=== PATIENT | male | born 1980 | race Hispanic/Latino ===

== ENCOUNTER 2024-07-02 03:38 | Inpatient (IN) | payer SELFPAY ==
[2024-07-02 10:42] VITALS: BMI 36.1
[2024-07-02] MEDS ORDERED: Electrolyte Replacement Protocol 1 EACH FS SCH (10:45)
[2024-07-02] MEDS ORDERED: Lorazepam 1 MG TAB PO PRN (10:45)
[2024-07-02] MEDS ORDERED: Ondansetron ODT 4 MG TAB PO PRN (10:45)
[2024-07-02] MEDS ORDERED: Acetaminophen 325 MG TAB PO PRN (10:45)
[2024-07-02] MEDS ORDERED: Glucagon 1 MG/ML KIT IM PRN (10:50)
[2024-07-02] MEDS ORDERED: Dextrose 50% Abboject 50 ML SYRINGE SLOW IVP PRN (10:50)
[2024-07-02] MEDS ORDERED: Dextrose 5% in Water 1,000 ML IV PRN (10:50)
[2024-07-02] MEDS: Lorazepam 1 MG TAB PO SCH (11:24)
[2024-07-02] MEDS: Thiamine HCl 200 MG/2 ML VIAL SLOW IVP SCH (11:24)
[2024-07-02] MEDS: Insulin Regular, Human 100 UNIT/ML 10 ML VIAL SC PRN (11:56)
[2024-07-02] MEDS: Atorvastatin Calcium 20 MG TAB PO SCH (22:08)
[2024-07-02] MEDS: Famotidine 20 MG TAB PO SCH (22:08)
[2024-07-03 04:35] LABS: #Basophils 0.08 10x3/uL (0.0-0.2); %Basophils 0.6 % (0.0-1.0); %Eosinophils 1.7 % (0.0-10.0); %Lymphocytes 13.9 % (21.0-51.0); %Monocytes 6.5 % (0.0-10.0); %Neutrophils 76.9 % (42.0-75.0); Hematocrit 48.6 % (42.0-52.0); Mean Corpuscular HGB CONC 32.9 g/dL (32.0-36.0); Mean Corpuscular Hemoglobin 31.4 pg (27.0-31.0); Mean Corpuscular Volume 95.5 fL (78.0-98.0); Mean Platelet Volume 10.2 fL (7.4-10.4); Platelet Count 184 10x3/uL (130-400); RBC Distribution Width 12.2 % (11.5-14.5); Red Blood Cell (RBC) Count 5.09 mill/uL (4.70-6.10)
[2024-07-03 05:53] LABS: ALT (SGPT) 75 U/L (8-55); AST (SGOT) 100 U/L (5-34); Albumin 3.8 g/dL (3.5-5.0); Alkaline Phosphatase 102 U/L (40-110); Anion Gap 17 mmol/L (10-20); BUN (Urea Nitrogen) 13 mg/dL (8.9-20.6); Bilirubin, Total 1.8 mg/dL (0.2-1.2); Calc. Creatinine Clearance 156 mL/min (70-130); Calcium 9.4 mg/dL (7.8-10.44); Carbon Dioxide 25 mmol/L (22-29); Chloride 104 mmol/L (98-107); Estimated GFR 110; Globulin 4.4 g/dL (2.4-3.5); Glucose 223 mg/dL (70-105); Potassium 4.1 mmol/L (3.5-5.1); Protein, Total 8.2 g/dL (6.0-8.3); Sodium 142 mmol/L (136-145)
[2024-07-03] MEDS: Folic Acid 1 MG TAB PO SCH (08:34)
[2024-07-03] MEDS: Enoxaparin 40 MG (0.4 mL) SYRINGE SC SCH (08:34)
[2024-07-03] MEDS: Multivit, Therapeutic 1 TAB PO SCH (08:34)
[2024-07-03] MEDS: FLU (Fluarix Triv) TS24-25(6MOS UP)/PF 45 MCG/0.5 ML Syringe IM ONE (08:35)
[2024-07-03] MEDS ORDERED: Lorazepam 1 MG TAB PO PRN (10:45)
[2024-07-03 11:09] LABS: Hemoglobin A1c 9.4 % (4.0-6.0)
[2024-07-03] MEDS: metFORMIN 500 MG TAB PO SCH (16:33)
[2024-07-04] MEDS: metFORMIN 500 MG TAB PO SCH (09:18)
[2024-07-04] MEDS: Lorazepam 0.5 MG TAB PO SCH (10:09)
[2024-07-04] MEDS ORDERED: Lorazepam 1 MG TAB PO PRN (10:45)
[2024-07-04 12:53] VITALS: BP 130/86; TEMP 98.3
[2024-07-05] MEDS ORDERED: Thiamine 100 MG TAB PO SCH (09:00)
[2024-07-05] MEDS ORDERED: Lorazepam 0.5 MG TAB PO PRN (10:45)
== END 2024-07-04 15:16 | disposition home or self-care (01) | DRG 897 ==
LOC: 2NO 10:12
PROVIDERS: ADMIT Internal Medicine; ATTEND Internal Medicine
DX: F10.239 Alcohol dependence with withdrawal, unspecified (principal); F41.9 Anxiety disorder, unspecified; E78.5 Hyperlipidemia, unspecified; E11.65 Type 2 diabetes mellitus with hyperglycemia; R03.0 Elevated blood-pressure reading, without diagnosis of hypertension; R27.0 Ataxia, unspecified; D72.829 Elevated white blood cell count, unspecified
CPT/HCPCS: 36415; 36416; 80053; 83036; 85025; J1650; J1815; J3411